=== PATIENT | male | born 1955 | race African-American/Black ===

== ENCOUNTER 2017-08-24 13:52 | Emergency (ER) | payer OTHER ==
--- NOTE | 2017-08-24 15:24 | EDPHYS ---
Physician Documentation [facility] Name: Perez Villareal Sr Age: 61 yrs Sex: Male : 1955 Arrival Date: 08/24/2017 Time: 13:57 Bed 30 Private MD: None, None ED Physician José Miguel Riggs HPI: 08/24 15:21 This 61 yrs old Black Male presents to ER via Ambulatory with complaints of Toothache. jr8 15:21 The patient presents with pain. The problem is located in the mouth. Onset: The jr8 symptoms/episode began/occurred acutely, yesterday. Duration: The symptoms are continuous. Modifying factors: The symptoms are alleviated by nothing, the symptoms are aggravated by air, chewing, talking. Associated signs and symptoms: The patient has no apparent associated signs or symptoms. Severity of symptoms: At their worst the symptoms were mild, in the emergency department the symptoms are unchanged. It is unknown whether or not the patient has had similar symptoms in the past. The patient has not recently seen a physician. Stated that he has a toothache that is not improving . Historical: - Allergies: 14:02 No Known Allergies; sg - Home Meds: 14:02 BP medication [Active]; Prostate Medication [Active]; sg - PMHx: 14:02 Hypertension; sg - PSHx: 14:02 Hernia repair; sg - Immunization history:: Adult Immunizations up to date. - Social history:: Smoking status: Patient/guardian denies using tobacco. - Ebola Screening: : Patient negative for fever greater than or equal to 101.5 degrees Fahrenheit, and additional compatible Ebola Virus Disease symptoms Patient denies exposure to infectious person Patient denies travel to an Ebola-affected area in the 21 days before illness onset No symptoms or risks identified at this time. ROS: 15:21 Eyes: Negative for injury, pain, redness, and discharge, Neck: Negative for injury, jr8 pain, and swelling, Cardiovascular: Negative for chest pain, palpitations, and edema, Respiratory: Negative for shortness of breath, cough, wheezing, and pleuritic chest pain, Abdomen/GI: Negative for abdominal pain, nausea, vomiting, diarrhea, and constipation, Back: Negative for injury and pain, MS/Extremity: Negative for injury and deformity, Skin: Negative for injury, rash, and discoloration, Neuro: Negative for headache, weakness, numbness, tingling, and seizure. 15:21 ENT: Positive for dental pain. Exam: 15:21 Head/Face: Normocephalic, atraumatic. Eyes: Pupils equal round and reactive to light, jr8 extra-ocular motions intact. Lids and lashes normal. Conjunctiva and sclera are non-icteric and not injected. Cornea within normal limits. Periorbital areas with no swelling, redness, or edema. Neck: Trachea midline, no thyromegaly or masses palpated, and no cervical lymphadenopathy. Supple, full range of motion without nuchal rigidity, or vertebral point tenderness. No Meningismus. Cardiovascular: Regular rate and rhythm with a normal S1 and S2. No gallops, murmurs, or rubs. Normal PMI, no JVD. No pulse deficits. Respiratory: Lungs have equal breath sounds bilaterally, clear to auscultation and percussion. No rales, rhonchi or wheezes noted. No increased work of breathing, no retractions or nasal flaring. Skin: Warm, dry with normal turgor. Normal color with no rashes, no lesions, and no evidence of cellulitis. MS/ Extremity: Pulses equal, no cyanosis. Neurovascular intact. Full, normal range of motion. Neuro: Awake and alert, GCS 15, oriented to person, place, time, and situation. Cranial nerves II-XII grossly intact. Motor strength 5/5 in all extremities. Sensory grossly intact. Cerebellar exam normal. Normal gait. 15:21 ENT: External ear(s): are unremarkable, Ear canal(s): are normal, clear, TM's: are normal, Nose: External nose: no obvious acute abnormality, Nasal septum: is midline, Nasal mucosa: moist, Turbinates: are normal, Mouth: Lips: moist, Oral mucosa: pink and intact, moist, Gums: pink, Tongue: is moist, Posterior pharynx: Airway: patent, Tonsils: are normal in appearance, Uvula: midline, Dental exam: pain, that is moderate, specifically in the upper right second molar (#2). Vital Signs: 14:00 BP 137 / 88; Pulse 84; Resp 17; Temp 98.4; Pulse Ox 98% on R/A; Weight 65.77 kg; Height sg 5 ft. 6 in. (167.64 cm); Pain 8/10; 15:33 BP 136 / 88; Pulse 84; Resp 17; Temp 98.6(O); Pulse Ox 100% on R/A; Pain 8/10; ed1 14:00 Body Mass Index 23.40 (65.77 kg, 167.64 cm) MDM: 14:57 Patient medically screened. jr8 15:21 Data reviewed: vital signs, nurses notes, and as a result, I will discharge patient. jr8 Data interpreted: Pulse oximetry: on room air is 98 %. Interpretation: normal. Counseling: I had a detailed discussion with the patient and/or guardian regarding: the historical points, exam findings, and any diagnostic results supporting the discharge/admit diagnosis, the need for outpatient follow up, a dentist, to return to the emergency department if symptoms worsen or persist or if there are any questions or concerns that arise at home. Administered Medications: No medications were administered Disposition: 16:30 Co-signature as Attending Physician, José Miguel Riggs MD. rn Disposition: 08/24/17 15:24 Discharged to Home. Impression: Dentalgia . - Condition is Stable. - Discharge Instructions: Dental Abscess. - Prescriptions for Augmentin 875- 125 mg Oral Tablet - take 1 tablet by ORAL route every 12 hours for 10 days; 20 tablet. Tylenol- Codeine #3 300-30 mg Oral Tablet - take 2 tablets by ORAL route every 6 hours As needed; 20 tablet. - Medication Reconciliation Form, Thank You Letter, Antibiotic Education, Prescription Opioid Use form. - Follow up: Private Physician; When: 1 week; Reason: Recheck today's complaints, Continuance of care, Re-evaluation by your physician. - Problem is new. - Symptoms have improved. Signatures: Wilmer Hancock RN RN José Miguel Riggs MD MD rn Riggs, Erika, ELECTRONIC PUBLISHING SPECIALIST ELECTRONIC PUBLISHING SPECIALIST ed1 Tomasz Berman PA PA jr8 Corrections: (The following items were deleted from the chart) 15:35 15:24 08/24/2017 15:24 Discharged to Home. Impression: Dentalgia . Condition is Stable. ed1 Forms are Medication Reconciliation Form, Thank You Letter, Antibiotic Education, Prescription Opioid Use. Follow up: Private Physician; When: 1 week; Reason: Recheck today's complaints, Continuance of care, Re-evaluation by your physician. Problem is new. Symptoms have improved. jr8
--- NOTE | 2017-08-24 15:24 | ER ---
Nurse's Notes [facility] Name: Perez Villareal Sr Age: 61 yrs Sex: Male : 1955 Arrival Date: 08/24/2017 Time: 13:57 Bed 30 Private MD: None, None Diagnosis: Dentalgia Presentation: 08/24 13:58 Presenting complaint: Patient states: Right Upper Molar, pain and swelling for three sg days now, denies N/V/D. Transition of care: patient was not received from another setting of care. Onset of symptoms was August 24, 2017. Risk Assessment: Do you want to hurt yourself or someone else? Patient reports no desire to harm self or others. Initial Sepsis Screen: Does the patient meet any 2 criteria? No. Patient's initial sepsis screen is negative. Does the patient have a suspected source of infection? No. Patient's initial sepsis screen is negative. Care prior to arrival: None. 13:58 Method Of Arrival: Ambulatory sg 13:58 Acuity: ARIEL 4 sg Historical: - Allergies: 14:02 No Known Allergies; sg - Home Meds: 14:02 BP medication [Active]; Prostate Medication [Active]; sg - PMHx: 14:02 Hypertension; sg - PSHx: 14:02 Hernia repair; sg - Immunization history:: Adult Immunizations up to date. - Social history:: Smoking status: Patient/guardian denies using tobacco. - Ebola Screening: : Patient negative for fever greater than or equal to 101.5 degrees Fahrenheit, and additional compatible Ebola Virus Disease symptoms Patient denies exposure to infectious person Patient denies travel to an Ebola-affected area in the 21 days before illness onset No symptoms or risks identified at this time. Screenin:58 Abuse screen: Denies threats or abuse. Denies injuries from another. Nutritional ed1 screening: No deficits noted. Tuberculosis screening: No symptoms or risk factors identified. Fall Risk None identified. Assessment: 14:58 General: Appears in no apparent distress. uncomfortable, Behavior is calm, cooperative. ed1 Pain: Complains of pain in mouth Pain does not radiate. Pain currently is 8 out of 10 on a pain scale. Quality of pain is described as throbbing, Pain began 2-3 days ago. Is continuous. Neuro: Level of Consciousness is awake, alert, obeys commands, Oriented to person, place, time, situation. Cardiovascular: Denies chest pain, Heart tones S1 S2 present. Respiratory: Airway is patent Respiratory effort is even, unlabored, Respiratory pattern is regular, symmetrical, Breath sounds are clear bilaterally. Denies cough, shortness of breath. GI: No signs and/or symptoms were reported involving the gastrointestinal system. : No signs and/or symptoms were reported regarding the genitourinary system. EENT: Reports pain in right mandible. Derm: Skin is pink, warm \T\ dry. Musculoskeletal: Circulation, motion, and sensation intact. 15:33 Reassessment: Patient appears in no apparent distress at this time. No changes from ed1 previously documented assessment. Patient and/or family updated on plan of care and expected duration. Pain level reassessed. Patient is alert, oriented x 3, equal unlabored respirations, skin warm/dry/pink. Patient states symptoms have not improved. Vital Signs: 14:00 BP 137 / 88; Pulse 84; Resp 17; Temp 98.4; Pulse Ox 98% on R/A; Weight 65.77 kg; Height sg 5 ft. 6 in. (167.64 cm); Pain 8/10; 15:33 BP 136 / 88; Pulse 84; Resp 17; Temp 98.6(O); Pulse Ox 100% on R/A; Pain 8/10; ed1 14:00 Body Mass Index 23.40 (65.77 kg, 167.64 cm) sg ED Course: 13:57 Patient arrived in ED. sb2 13:57 Arm band placed on. sg 13:58 None, None is Private Physician. sb2 14:00 Triage completed. sg 14:57 Tomasz Berman PA is PHCP. jr8 14:57 José Miguel Riggs MD is Attending Physician. jr8 14:58 Lashanda Portillo LVN is Primary Nurse. ed1 14:58 Patient has correct armband on for positive identification. Bed in low position. Call ed1 light in reach. 15:33 No provider procedures requiring assistance completed. Patient did not have IV access ed1 during this emergency room visit. Administered Medications: No medications were administered Outcome: 15:24 Discharge ordered by . jr8 15:33 Discharged to home ambulatory. ed1 15:33 Condition: good 15:33 Discharge instructions given to patient, Instructed on discharge instructions, follow up and referral plans. medication usage, Demonstrated understanding of instructions, follow-up care, medications, Prescriptions given X 2. 15:35 Patient left the ED. ed1 Signatures: Wilmer Hancock RN RN Lashanda Lauren LVN LVN ed1 Tomasz Berman PA PA jr8 Jory [place] sb2
== END 2017-08-24 15:35 | disposition home or self-care (01) ==
LOC: ER 13:52
DX: K08.89 Other specified disorders of teeth and supporting structures (principal); I10 Essential (primary) hypertension
CPT/HCPCS: 99282